=== PATIENT | male | born 1960 | race Caucasian/White ===

== ENCOUNTER 2022-11-16 09:48 | Emergency (ER) | payer SELFPAY ==
[2022-11-16 10:00] VITALS: BP 169/95; PULSE 74; RESP 16; TEMP 36.8; O2SAT 98
[2022-11-16 10:16] VITALS: BP 169/95; PULSE 74; RESP 16; TEMP 36.8; O2SAT 98
--- NOTE | 2022-11-16 10:31 | ED.EAR ---
HPI - Ear Problem General Chief complaint: Ear Stated complaint: Left Ear Irritation Time Seen by Provider: 11/16/22 10:31 Source: patient Mode of arrival: ambulatory Limitations: no limitations History of Present Illness HPI Narrative: 62-year-old male presents with complaint pain to left ear. Patient states that he swam on Sunday and Sunday, left ear pain started on Sunday. Denies drainage. No other complaints today. Afebrile. All systems reviewed and negative except as noted above. Related Data Allergies Allergy/AdvReac Type Severity Reaction Status Date / Time No Known Allergies Allergy Verified 11/16/22 09:58 Review of Systems Review of Systems: CONSTITUTIONAL: Denies fever, chills, or sweats. EYES: Denies visual changes, redness, or discharge. ENT: Denies rhinorrhea, congestion, sore throat . Reports pain to left ear. CARDIOVASCULAR: Denies chest pain, palpitations, or edema. RESPIRATORY: Denies cough or dyspnea. GASTROINTESTINAL: Denies abdominal pain, nausea, vomiting, or diarrhea. GENITOURINARY: Denies dysuria or hematuria. SKIN: Denies rash or itching. MUSCULOSKELETAL: Denies back pain, joint pain, or myalgia. NEUROLOGIC: Denies headache, numbness, or weakness. PSYCHIATRIC: Denies anxiety or depression. All other systems reviewed are negative, except as documented in HPI. PMFSH Comments At time of signature, agree with nursing past medical, surgical, social and family history. There is no relevant family history pertinent to the presenting complaint. Exam Narrative: GENERAL: This is a well-nourished, well-developed patient, in no apparent distress. HEAD: normocephalic, atraumatic. EYES: PERRL. Sclera clear/white. Vision is grossly intact. EARS: External ears normal, Right ear canal normal. Left ear canal is erythematous and swollen without drainage., TMs normal without perforation. Hearing grossly intact. NOSE: External nose normal NECK: Neck supple, non-tender without lymphadenopathy, masses or thyromegaly. CARDIOVASCULAR: Regular rate and rhythm without murmurs, gallops, or rubs. RESPIRATORY: Clear to auscultation. Breath sounds equal bilaterally. No wheezes, rales, or rhonchi. SKIN: warm, Dry, intact with no suspicious lesions or rash, good texture and turgor. NEURO: awake, alert, and oriented to person, place and time. There were no obvious focal neurologic abnormalities. EXTREMITIES: No joint tenderness, effusion, or edema noted. Course Course Level of Care: Express Care Visit Vital Signs Vital signs: Vital Signs Temperature 36.8 C 11/16/22 10:00 Pulse Rate 74 11/16/22 10:00 Respiratory Rate 16 11/16/22 10:00 Blood Pressure 169/95 H 11/16/22 10:00 Pulse Oximetry 98 11/16/22 10:00 Oxygen Delivery Room Air 11/16/22 10:00 Temperature 36.8 C 11/16/22 10:16 Pulse Rate 74 11/16/22 10:16 Respiratory Rate 16 11/16/22 10:16 Blood Pressure 169/95 H 11/16/22 10:16 Pulse Oximetry 98 11/16/22 10:16 Oxygen Delivery Room Air 11/16/22 10:16 Reviewed, instructed patient to follow-up with his primary care physician for blood pressure recheck in 1 week. Medical Decision Making MDM Narrative Medical decision making narrative: Patient is aware of diagnosis, understands and agrees to treatment plan. Anticipatory guidance given. Patient agrees to follow-up as directed and is aware of reasons to seek care at the emergency department. Portions of this record may have been created with voice recognition software Vital Signs Vital Signs: Vital Signs Temperature 36.8 C 11/16/22 10:00 Pulse Rate 74 11/16/22 10:00 Respiratory Rate 16 11/16/22 10:00 Blood Pressure 169/95 H 11/16/22 10:00 Pulse Oximetry 98 11/16/22 10:00 Oxygen Delivery Room Air 11/16/22 10:00 Temperature 36.8 C 11/16/22 10:16 Pulse Rate 74 11/16/22 10:16 Respiratory Rate 16 11/16/22 10:16 Blood Pressure 169/95 H 11/16/22 10:16 Pulse Ox
== END 2022-11-16 10:39 | disposition home or self-care (01) ==
PROVIDERS: Emergency Provider Nurse Practitioner Family; PCP Physician Assistant Medical
DX: H60.332 Swimmer's ear, left ear (principal); R03.0 Elevated blood-pressure reading, without diagnosis of hypertension
CPT/HCPCS: 99213; G0463